=== PATIENT | female | born 1990 | race Hispanic/Latino ===

== ENCOUNTER 2017-07-27 16:39 | Emergency (ER) | payer MEDICAID, OTHER, SELFPAY ==
[2017-07-27 16:40] VITALS: BMI 29.9
[2017-07-27 16:59] VITALS: PULSE 77; RESP 18; TEMP 98.9; O2SAT 98
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
[2017-07-27] MEDS ORDERED: Oxycodone/Acetaminophen 5/325 mg Tab PO STA (18:10)
[2017-07-27 18:42] VITALS: BP 110/78
== END 2017-07-27 18:39 | disposition home or self-care (01) ==
LOC: ED 16:39
DX: M54.5 Low back pain (principal)
CPT/HCPCS: 96372; 99283; J1885

== ENCOUNTER 2017-07-29 21:10 | Emergency (ER) | payer OTHER ==
--- NOTE | 2017-07-29 21:20 | ED PDOC ---
Arrival/HPI - General Time Seen by Provider: 07/29/17 21:19 Historian: Patient - History of Present Illness Narrative History of Present Illness (Text): 07/29/17 21:20 26 y/o female, no significant pmh, nkda, c/o lower back pain x 1 week with no fall or trauma. Pt. stated that she was cleaning her house about 6 days ago, been having pain since, aching pain, associated with spasm, no numbness or tingling, non-radiating, no fever or chills, no urinary symptoms, no rash, no other medical or psychological complaints. Past Medical History - Provider Review Nursing Documentation Reviewed: Yes - Infectious Disease Hx of Infectious Diseases: None - Cardiac Hx Cardiac Disorders: No Hx Hypertension: No Hx Pacemaker: No - Pulmonary Hx Respiratory Disorders: No Hx Asthma: No Hx Chronic Obstructive Pulmonary Disease (COPD): No Hx Emphysema: No - Neurological HX Cerebrovascular Accident: No Hx Dementia: No Hx Seizures: No - Renal Hx Renal Disorder: No - Hematological/Oncological Hx Cancer: No - Musculoskeletal/Rheumatological Hx Musculoskeletal Disorders: No Hx Falls: No - Gastrointestinal Hx Gastroesophageal Reflux: No - Psychiatric Hx Depression: No Hx Emotional Abuse: No Hx Physical Abuse: No Hx Substance Use: No - Anesthesia Hx Anesthesia: No - Suicidal Assessment Feels Threatened In Home Enviroment: No Family/Social History - Physician Review Nursing Documentation Reviewed: Yes Family/Social History: Unknown Family HX Smoking Status: Never Smoked Hx Alcohol Use: No Hx Substance Use: No Hx Substance Use Treatment: No Allergies/Home Meds Allergies/Adverse Reactions: Allergies No Known Allergies Allergy (Verified 07/29/17 21:52) Review of Systems - Review of Systems Constitutional: absent: Fatigue, Fevers Eyes: absent: Vision Changes ENT: absent: Hearing Changes Respiratory: absent: SOB, Cough Cardiovascular: absent: Chest Pain Gastrointestinal: absent: Abdominal Pain, Nausea, Vomiting Musculoskeletal: Back Pain, Myalgias. absent: Arthralgias, Neck Pain, Joint Swelling Skin: absent: Rash, Pruritis Neurological: absent: Headache Psychiatric: absent: Anxiety, Depression, Suicidal Ideation Physical Exam Vital Signs Reviewed: Yes Vital Signs Temp Pulse Resp BP Pulse Ox 07/29/17 21:49 97.8 F 84 17 112/63 99 Temperature: Afebrile Blood Pressure: Normal Pulse: Regular Respiratory Rate: Normal Appearance: Positive for: Well-Appearing, Non-Toxic, Comfortable Pain Distress: Severe Mental Status: Positive for: Alert and Oriented X 3 - Systems Exam Head: Present: Atraumatic, Normocephalic Pupils: Present: PERRL Extroacular Muscles: Present: EOMI Conjunctiva: Present: Normal Mouth: Present: Moist Mucous Membranes Nose (Internal): Present: Normal Inspection, No Active Bleeding. No: Rhinorrhea , Septal Hematoma, Epistaxis Neck: Present: Normal Range of Motion Respiratory/Chest: Present: Clear to Auscultation, Good Air Exchange. No: Respiratory Distress, Accessory Muscle Use Cardiovascular: Present: Regular Rate and Rhythm, Normal S1, S2. No: Murmurs Abdomen: Present: Normal Bowel Sounds. No: Tenderness, Distention, Peritoneal Signs Back: Present: Normal Inspection, Paraspinal Tenderness (Lumbar spine: +ttp and spasm noted bilaterally, no streaking, no rash, FROM with pain, sensation intact , motor 5/5, no focal neurological deficits. ). No: CVA Tenderness, Midline Tenderness Upper Extremity: Present: Normal Inspection. No: Cyanosis, Edema Lower Extremity: Present: Normal Inspection. No: Edema Neurological: Present: GCS=15, CN II-XII Intact, Speech Normal Skin: Present: Warm, Dry, Normal Color. No: Rashes Psychiatric: Present: Alert, Oriented x 3, Normal Insight, Normal Concentration Medical Decision Making ED Course and Treatment: 07/29/17 22:02 -labs/ua -CT lumbar spine -IVF/toradol/valium/percocet/lidoderm -Observe and reassess 07/30/17 01:16 -Urine hcg is negative -CT lumbar show Mild L5-S1 disc herniation. No spinal canal stenosis. -Labs show no acute findings -UA show +UTI -IV rocephine ordered -Pt. walking with normal gait and posture, feeling much better, will discharge home. -Discharge home with macrobid, lidoderm patch, ibuprofen, follow up with your own pmd and neurosurgery within 2 days, return to the ER for any new or worsening signs or symptoms. - Lab Interpretations Lab Results: 07/29/17 23:32 07/29/17 23:32 Lab Results 07/29/17 23:32: Sodium 138, Potassium 3.8, Chloride 104, Carbon Dioxide 26, Anion Gap 12, BUN 19, Creatinine 0.7, Est GFR ( Amer) > 60, Est GFR (Non- Af Amer) > 60, Random Glucose 99, Calcium 10.1, Magnesium 2.2, Total Bilirubin 0.1 L, AST 15, ALT 19, Alkaline Phosphatase 75, Total Creatine Kinase 58, Total Protein 7.9, Albumin 4.3, Globulin 3.6, Albumin/Globulin Ratio 1.2 07/29/17 23:32: WBC 5.8, RBC 4.38, Hgb 11.7 L, Hct 35.4 L, MCV 80.8, MCH 26.7, MCHC 33.1, RDW 14.2, Plt Count 270, MPV 10.6, Gran % 43.6 L, Lymph % (Auto) 49.7 H, Saunders % (Auto) 5.2, Eos % (Auto) 1.0 L, Baso % (Auto) 0.5, Gran # 2.53, Lymph # (Auto) 2.9, Saunders # (Auto) 0.3, Eos # (Auto) 0.1, Baso # (Auto) 0.03 07/29/17 22:45: Urine Color Yellow, Urine Appearance Sl cloudy, Urine pH 6.0, Ur Specific Coulter >= 1.030, Urine Protein Negative, Urine Glucose (UA) Negative, Urine Ketones Negative, Urine Blood Negative, Urine Nitrate Negative, Urine Bilirubin Negative, Urine Urobilinogen 0.2, Ur Leukocyte Esterase Moderate H, Urine RBC Negative, Urine WBC 2 - 5, Ur Epithelial Cells 4 - 5 I have reviewed the lab results: Yes - RAD Interpretation Radiology Orders: 07/29/17 21:57 LUMBAR SPINE W/O CONTRAST [CT] Stat FINDINGS: Vertebrae: Pars defect at L5. No acute fracture. Discs/spinal canal/neural foramina: Mild L5-S1 disc herniation. No spinal canal stenosis. Soft tissues: Unremarkable. Reproductive: Uterus is seen. IMPRESSION: No acute findings. Thank you for allowing us to participate in the care of your patient. Dictated and Authenticated by: Marina Cruz MD 07/30/2017 1:13 AM Eastern Time ([place] & [place]) - Medication Orders Current Medication Orders: Discontinued Medications Diazepam (Valium) 5 mg PO ONCE ONE PRN Reason: Protocol Stop: 07/29/17 21:58 Last Admin: 07/29/17 23:03 Dose: 5 mg Sodium Chloride (Sodium Chloride 0.9%) 1,000 mls @ 999 mls/hr IV .Q1H1M STA Stop: 07/29/17 22:59 Last Admin: 07/29/17 23:20 Dose: 999 mls/hr eMAR Start Stop Document 07/29/17 23:20 (Rec: 07/29/17 23:35 [id number] Intravenous Solution Start Date 07/29/17 Start Time 23:20 Ceftriaxone Sodium (Rocephin 1 Gram Ivpb) 1 gm in 100 mls @ 200 mls/hr IVPB STAT STA PRN Reason: Protocol Stop: 07/30/17 00:35 Ketorolac Tromethamine (Toradol) 30 mg IVP STAT STA Stop: 07/29/17 21:58 Last Admin: 07/29/17 23:19 Dose: 30 mg MAR Pain Assessment Document 07/29/17 23:19 (Rec: 07/29/17 23:19 [id number] Pain Reassessment Is this a pain reassessment? Yes IVP Administration Document 07/29/17 23:19 RG (Rec: 07/29/17 23:19 [id number][facility] Charges for Administration # of IVP Administrations 1 Lidocaine (Lidoderm) 1 ea TD STAT STA Stop: 07/29/17 22:04 Last Admin: 07/29/17 23:01 Dose: 1 ea MAR Transdermal Patch Site Document 07/29/17 23:01 RG (Rec: 07/29/17 23:03 [id number] Transdermal Patch Site Transdermal Patch Site Left Lower Back Oxycodone/Acetaminophen (Percocet 5/325 Mg Tab) 1 tab PO STAT STA Stop: 07/29/17 21:58 Last Admin: 07/29/17 23:19 Dose: 1 tab MAR Pain Assessment Document 07/29/17 23:19 (Rec: 07/29/17 23:19 [id number][facility] Pain Reassessment Is this a pain reassessment? Yes Presence of Pain Presence of Pain Yes Location Upper or Lower Lower Pain Location Body Site Back Description Description Constant Pain Behavior Irritability - PA / [employer] / Resident Statement MD/DO has reviewed & agrees with the documentation as recorded. Disposition/Present on Arrival - Present on Arrival Any Indicators Present on Arrival: No History of DVT/PE: No History of Uncontrolled Diabetes: No Urinary Catheter: No History of Decub. Ulcer: No History Surgical Site Infection Following: None - Disposition Have Diagnosis and Disposition been Completed?: Yes Diagnosis: UTI (urinary tract infection), Disc herniation Disposition: HOME/ ROUTINE Disposition Time: 00:41 Patient Plan: Discharge Patient Problems: Current Active Problems Problem Status Onset UTI (urinary tract infection) Acute Condition: IMPROVED Additional Instructions: Discharge home with macrobid, lidoderm patch, ibuprofen, follow up with your own pmd and neurosurgery within 2 days, return to the ER for any new or worsening signs or symptoms. Prescriptions: Ibuprofen [Motrin Tab] 800 mg PO TID PRN #30 tab PRN Reason: Other Lidocaine 5% [Lidoderm] 1 patch TP DAILY PRN #14 patch PRN Reason: Other Nitrofurantoin Macrocrystals [Macrobid] 100 mg PO BID #14 cap Referrals: Jose Elias Mckenna MD [Primary Care Provider] - Follow up with primary Tc Vasquez MD [Staff Provider] - Follow up with primary Forms: WORK NOTE
[2017-07-29 21:50] VITALS: TEMP 97.8
[2017-07-29 21:56] VITALS: BMI 30.1
[2017-07-29] MEDS ORDERED: Oxycodone/Acetaminophen 5/325 mg Tab PO STA (21:57)
[2017-07-29] MEDS ORDERED: Sodium Chloride 0.9% 1,000 ML IV STA (21:59)
[2017-07-29] MEDS ORDERED: Lidocaine 5% Patch TD STA (22:03)
[2017-07-29 22:58] LABS: URINE BILIRUBIN NEGATIVE (NEGATIVE); URINE BLOOD NEGATIVE (NEGATIVE); URINE GLUCOSE (UA) NEGATIVE (NEGATIVE); URINE LEUKOCYTE ESTERASE MODERATE Leu/uL (NEGATIVE); URINE PROTEIN NEGATIVE mg/dL (<30 mg/dL); URINE UROBILINOGEN 0.2 E.U./dL (<1 E.U./dL)
[2017-07-29 23:00] LABS: URINE APPEARANCE SL CLOUDY (CLEAR); URINE COLOR YELLOW (YELLOW)
[2017-07-29 23:06] LABS: URINE RBC NEGATIVE /hpf (0-2)
[2017-07-29 23:57] LABS: BASO # 0.03 K/mm3 (0.0-2.0); BASO % 0.5 % (0.0-3.0); EOS # 0.1 (0.0-0.7); GRAN # 2.53 (1.4-6.5); GRAN % 43.6 % (50.0-68.0); HEMOGLOBIN 11.7 g/dL (12.0-16.0); LYMPH # 2.9 (1.2-3.4); LYMPH % 49.7 % (22.0-35.0); MEAN CELL VOLUME 80.8 fl (80.0-105.0); MEAN CORPUSCULAR HEMOGLOBIN 26.7 pg (25.0-35.0); MEAN CORPUSCULAR HGB CONC 33.1 g/dl (31.0-37.0); MEAN PLATELET VOLUME 10.6 fl (7.0-11.0); MONO # 0.3 (0.1-0.6); MONO % 5.2 % (1.0-6.0); RBC 4.38 10^6/uL (3.5-6.1); RED CELL DISTRIBUTION WIDTH 14.2 % (11.5-14.5); WHITE BLOOD COUNT 5.8 10^3/ul (4.5-11.0)
[2017-07-30] MEDS ORDERED: cefTRIAXone 1 gm 1 GM/100 ML BAG IVPB STA (00:06)
[2017-07-30 00:09] LABS: ALB/GLOB RATIO 1.2 (1.1-1.8); ALBUMIN 4.3 g/dL (3.0-4.8); ALT/SGPT 19 U/L (7-56); AST/SGOT 15 U/L (14-36); BLOOD UREA NITROGEN 19 mg/dL (7-21); CALCIUM 10.1 mg/dL (8.4-10.5); GFR AFRICAN-AMERICAN > 60; GFR NON-AFRICAN AMERICAN > 60
[2017-07-30 01:58] VITALS: BP 106/59; PULSE 79; RESP 18; O2SAT 100
--- NOTE | 2017-07-30 14:41 | CT ---
PROCEDURE: CT Lumbar Spine without contrast HISTORY: lower back pain COMPARISON: None. TECHNIQUE: Axial computed tomography images were obtained of the lumbar spine without the use of intravenous contrast. Coronal and sagittal reformatted images were created and reviewed. Radiation dose: Total exam DLP = 879 mGy-cm. This CT exam was performed using one or more of the following dose reduction techniques: Automated exposure control, adjustment of the mA and/or kV according to patient size, and/or use of iterative reconstruction technique. FINDINGS: VERTEBRAE: Unremarkable. No fracture. Normal alignment. DISCS/SPINAL CANAL/NEURAL FORAMINA: L1-2: Unremarkable. L2-3: Unremarkable. L3-4: Unremarkable. L4-5: Unremarkable. L5-S1: Bilateral pars defects are seen at L5. There is a moderate size disc bulge. There is no evidence of spondylo listhesis. 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 PARASPINAL SOFT TISSUES: Unremarkable. OTHER FINDINGS: The report concurs with the preliminary [facility] report IMPRESSION: Bilateral spondylolysis at L5. No evidence of spondylolisthesis
== END 2017-07-30 01:52 | disposition home or self-care (01) ==
LOC: ED 21:10
DX: N39.0 Urinary tract infection, site not specified (principal); M51.27 Other intervertebral disc displacement, lumbosacral region
CPT/HCPCS: 72131; 80053; 81001; 82550; 83735; 85025; 87086; 96374; 99284; J1885; J7040